=== PATIENT | female | born 1950 | race Caucasian/White ===

== ENCOUNTER 2018-05-20 01:15 | Emergency (ER) | payer SELFPAY ==
[~2018-05-20] VITALS: Ht 147.3 cm; Wt 45.4 kg
[2018-05-20 01:17] VITALS: BP 138/70
[2018-05-20] MEDS ORDERED: HYDROCODONE/APAP 5/325MG 1 EACH TABLET ONE (01:29)
[2018-05-20] MEDS ORDERED: HYDROCODONE/APAP 5/325MG 1 EACH TABLET PO ONE (01:30)
--- NOTE | 2018-05-20 01:43 | NUR ---
XRAY IN PROGRESS AT THE BEDSIDE.
--- NOTE | 2018-05-20 01:57 | NUR ---
CALLING RADIOLOGY RE: FOOT XRAY NOT LOADED
[2018-05-20] MEDS ORDERED: ACETAMINOPHEN ES 500 MG TABLET ONE (02:11)
--- NOTE | 2018-05-20 02:13 | NUR ---
PT REC'D TYLENOL
--- NOTE | 2018-05-20 02:20 | NUR ---
PT AMBULATED TO THE BATHROOM WITH A SLOW STEADY GAIT.
--- NOTE | 2018-05-20 02:27 | NUR ---
PT AMBULATED BACK TO ER #3 WITH A SLOW STEADY GAIT. PT REC'D 5 WARM BLANKETS. PT IS C/O FEELING COLD. PT REC'D A CUP OF WATER.
[2018-05-20] MEDS ORDERED: ACETAMINOPHEN ES 500 MG TABLET PO ONE (02:30)
--- NOTE | 2018-05-20 03:03 | NUR ---
Patient discharged to home in stable condition. Written and verbal after care instructions given. Patient verbalizes understanding of instruction. PT AMBULATED OUT TO THE LOBBY WITH A STEADY GAIT. VSS.
--- NOTE | 2018-05-20 07:05 | NUR ---
PT REFUSED PAIN MEDICATION @ 0131. WASTED 1 NORCO 5/325MG TAB WITH VANDANA CHAO. MED THROWN IN MED WASTE RECEPITCAL AND WASTED IN PYXIS. ERROR WITH WASTE IN OMNISEL. WASTE AMOUNT SHOWED 0MG. COULD NOT CORRECT ERROR. PHARMACY NOTIFIED.
== END 2018-05-20 03:36 | disposition home or self-care (01) ==
LOC: ER 01:16
DX: M79.672 Pain in left foot (principal); F10.10 Alcohol abuse, uncomplicated; Y90.9 Presence of alcohol in blood, level not specified; Z59.0 Homelessness; Z88.0 Allergy status to penicillin
CPT/HCPCS: 73630; 99283; A4606; Z7610